=== PATIENT | female | born 1985 | race Caucasian/White ===

== ENCOUNTER 2018-08-25 06:16 | Day surgery (SDC) | payer OTHER ==
[~2018-08-25 06:16] MED LIST: Acetaminophen TAB* 325 MG PO ONE; Buffered Lidocaine 1% SYRIN* 1 ML/SYRINGE INTRADERM ONE; Lactated Ringers 1000 ML Bag* 1,000 ML IV SCH; Sodium Citrate/Citric Acid* 15 ML UDC PO ONE
[2018-08-25] MEDS ORDERED: Sodium Citrate/Citric Acid* 15 ML UDC ONE (06:23)
[2018-08-25] MEDS ORDERED: Acetaminophen TAB* 325 MG ONE (06:23)
[2018-08-25] MEDS ORDERED: Clindamycin 900 MG/D5W BAG(*) 900 MG/50 ML BAG IVPB ONE (06:27)
[2018-08-25] MEDS ORDERED: Bupivacaine 0.25% SDV* 30 ML ONE (07:15)
[2018-08-25] MEDS ORDERED: Propofol* 10 MG/ML 20 ML BTL ONE (07:24)
[2018-08-25] MEDS ORDERED: Lidocaine 2% PF * 5 ML VIAL ONE (07:24)
[2018-08-25] MEDS ORDERED: fentaNYL* 50 MCG/ML 2 ML VIAL (100 MCG VIAL) ONE (07:59)
[2018-08-25] MEDS ORDERED: Dexamethasone IV* 4 MG/ML 1 ML (4 MG) ONE (08:04)
[2018-08-25] MEDS ORDERED: Ondansetron INJ* 2 MG/ML VIAL IV PRN (08:15)
[2018-08-25] MEDS ORDERED: fentaNYL* 50 MCG/ML 2 ML VIAL (100 MCG VIAL) IV PRN (08:15)
[2018-08-25] MEDS ORDERED: Naloxone* 0.4 MG/ML 1 ML VIAL IV PRN (08:15)
[2018-08-25] MEDS ORDERED: oxyCODONE/Acetamin 5/325 MG* TAB ONE (10:24)
[2018-08-25 11:08] VITALS: BP 128/79
--- NOTE | 2018-08-26 00:17 | OP ---
DATE OF OPERATION: 08/25/18 - [facility] DATE OF : 87 SURGEON: Abbe Smith MD.. CATTLE FEEDER: PEDRO Lua. An assistance was needed for the procedure to aid in positioning of the arm and retraction. ANESTHESIOLOGIST: Dr. Fabian. ANESTHESIA: General. PRE-OP DIAGNOSES: 1. 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 2. Right carpal tunnel syndrome. POST-OP DIAGNOSES: 1. 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 2. Right carpal tunnel syndrome. OPERATIVE PROCEDURE: 1. Dorsal ulnar sensory nerve neurolysis with excision of neuroma and grafting with allograft on the right. 2. Right endoscopic carpal tunnel release. INDICATIONS: Beena has had the aforementioned arthroscopic procedures. She has very severe pain on the ulnar side of the wrist and positive Tinel sign and a lot of sensitivity over the dorsal ulnar sensory nerve where the 6U portal would be. Also, she has carpal tunnel syndrome. We talked about her treatment options. She wants to proceed with surgery. ESTIMATED BLOOD LOSS: 2 mL. COMPLICATIONS: None. FINDINGS: See above and below. DESCRIPTION OF PROCEDURE: Beena was seen in the preoperative holding area. The correct site, side, and procedure were identified. We came back to the operating room. The arm was prepped and draped in the usual fashion and a time- out was performed. The arm was exsanguinated with the Esmarch and the tourniquet was inflated to 250 mmHg. I first made a 1-cm transverse incision just proximal to the wrist flexion crease. The antebrachial fascia was opened longitudinally and a skin hook was placed. I used sequentially larger dilators and then ultimately the MicroAire Endoscopic Carpal Tunnel System was placed into the carpal tunnel, and under direct visualization, I released the entirety of the transverse carpal ligament and distal antebrachial fascia. I then came then proximally, released the distal antebrachial fascia with the tenotomy scissors. Once the release was confirmed, we irrigated out the wound and the skin was closed with a 4-0 nylon suture. I then made a longitudinal incision over the ulnar aspect of the distal forearm and wrist extending down on the ulnar hand. Dissection was carried down. The dorsal ulnar sensory nerve was encountered proximally. This was then traced out where it was noted to be transected with a significant neuroma. I went ahead and came distally into the subcutaneous tissue and found a couple of branches. It looked like it was right at a branch point where it had been transected. There were a couple of smaller branches distally that were noted. I traced the sensory nerve more proximally and excised the neuroma. I ended up having to go decently far proximally and probably another centimeter proximal to the neuroma to get nice surrounding vesicles. I also trimmed at the distal nerve ends until they looked like they were ready to receive. I then selected a 2 to 3 mm x 30 mm piece of allograft. This was an [employer] allograft nerve piece. I first came proximally and performed a co-optation with direct 9-0 nylon suture repair under Loupe magnification. I then placed a nerve connector over the co-optation. I then came distally and sewed each of those two small branches to the distal aspect of the nerve graft. A second nerve connector was placed over that co-optation as well. Each nerve connector was secured in place with a single 9-0 nylon suture. At this point, the nerve graft was looking very nice. I irrigated out the wound. The skin was closed with 4-0 nylon suture. Wounds were dressed with soft dressings and then well padded. A cock-up wrist splint was applied. Tourniquet was deflated and she was taken to the recovery room in stable condition. [id number]/[facility] #: [id number] ANA
== END 2018-08-25 11:07 | disposition home or self-care (01) ==
LOC: OREAST 06:16
PROVIDERS: ATTEND Orthopaedic Surgery Hand Surgery
DX: G56.21 Lesion of ulnar nerve, right upper limb (principal); G56.01 Carpal tunnel syndrome, right upper limb; Z87.891 Personal history of nicotine dependence; K21.9 Gastro-esophageal reflux disease without esophagitis; M19.90 Unspecified osteoarthritis, unspecified site; G90.511 Complex regional pain syndrome I of right upper limb
CPT/HCPCS: 88304; A9270-GY; C1713; J1100; J2704; J3010